=== PATIENT | male | born 1990 | race Caucasian/White ===

== ENCOUNTER 2016-12-24 04:11 | Observation (INO) | payer SELFPAY ==
[~2016-12-24] VITALS: Ht 180.3 cm; Wt 198.0 kg
[2016-12-24 04:12] VITALS: BP 146/72; PULSE 106; RESP 16; TEMP 98.1; O2SAT 100
--- NOTE | 2016-12-24 05:03 | RADRPT ---
EXAM DATE/TIME: 12/24/2016 04:41 [facility] COMPARISON: No previous studies available for comparison. INDICATIONS : Chest pain. MEDICAL HISTORY : Chronic obstructive pulmonary disease. SURGICAL HISTORY : None. ENCOUNTER: Initial ACUITY: 2 weeks PAIN SCORE: 6/10 LOCATION: Bilateral chest FINDINGS: Portable AP view of the chest demonstrates a normal-sized cardiac silhouette. No effusion, consolidat ion, or pneumothorax is visualized. The bones and soft tissues demonstrate no acute abnormality. CONCLUSION: No acute cardiopulmonary abnormality is identified. Contreras Duke MD on December 24, 2016 at 5:01 Board Certified Radiologist. This report was verified electronically.
[2016-12-24 05:14] LABS: AUTOMATED NEUTROPHIL # 8.2 TH/MM3 (1.8-7.7); BASOPHIL # 0.1 TH/MM3 (0-0.2); BASOPHIL % 0.8 % (0.0-2.0); EOSINOPHIL # 0.3 TH/MM3 (0-0.4); EOSINOPHIL % 2.2 % (0.0-4.0); HEMATOCRIT 37.1 % (39.0-51.0); HEMO FLAGS DIFF FINAL; LYMPH % 25.1 % (9.0-44.0); LYMPHOCYTE # 3.1 TH/MM3 (1.0-4.8); MEAN CORPUSCULAR HEMOGLOBIN 27.7 PG (27.0-34.0); MEAN CORPUSCULAR HGB CONC 34.6 % (32.0-36.0); MONO % 6.4 % (0.0-8.0); NEUT % 65.5 % (16.0-70.0); PLATELET COUNT 255 TH/MM3 (150-450); RED BLOOD COUNT 4.64 MIL/MM3 (4.50-5.90); RED CELL DISTRIBUTION WIDTH 20.2 % (11.6-17.2); WHITE BLOOD COUNT 12.5 TH/MM3 (4.0-11.0)
[2016-12-24 05:27] LABS: ANION GAP 9 MEQ/L (5-15); BICARBONATE 25.9 MEQ/L (21.0-32.0); BLOOD UREA NITROGEN 12 MG/DL (7-18); CHLORIDE 102 MEQ/L (98-107); GLOMERULAR FILTRATION RATE 104 ML/MIN (>89); POTASSIUM 3.3 MEQ/L (3.5-5.1); SODIUM (NA) 137 MEQ/L (136-145)
[2016-12-24 05:32] LABS: CREATINE KINASE 40 U/L (39-308)
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
[2016-12-24] MEDS ORDERED: KETOROLAC TROMETHAMINE 30 MG/ML (IVP) VIAL IV PUSH ONE (06:30)
[2016-12-24] MEDS ORDERED: SODIUM CHLOR 0.9% 1000 ML INJ 1,000 ML IV ONE (06:30)
--- NOTE | 2016-12-24 06:57 | RADRPT ---
EXAM DATE/TIME: 12/24/2016 06:48 [facility] COMPARISON: No previous studies available for comparison. INDICATIONS : Cephalgia with blurred vision. RADIATION DOSE: 51.58 CTDIvol (mGy) MEDICAL HISTORY : Hypertension. SURGICAL HISTORY : None. ENCOUNTER: Initial ACUITY: 1 day PAIN SCALE: 6/10 LOCATION: cranial TECHNIQUE: Multiple contiguous axial images were obtained of the head. Using automated exposure control and adj ustment of the mA and/or kV according to patient size, radiation dose was kept as low as reasonably a chievable to obtain optimal diagnostic quality images. DICOM format image data is available electro nically for review and comparison. FINDINGS: There is no evidence for intracranial hemorrhage, mass effect, mass lesions, edema, or extra-axial fl uid collections. The visualized bony structures appear intact. The ventricles are normal size for t he patient's age. There are no signs of acute infarction for technique. CONCLUSION: Unremarkable study. Maggy Marks MD on December 24, 2016 at 6:54 Board Certified Radiologist. This report was verified electronically.
[2016-12-24 07:04] LABS: BLOOD, URINE NEG (NEG); COMMENT (UR) CULT NOT INDICATED; CULTURE IF INDICATED CULT NOT INDICATED; GLUCOSE,URINE NEG (NEG); KETONE, URINE NEG (NEG); MUCUS URINE FEW /lpf (OCC); NITRITE,URINE NEG (NEG); PH, URINE 5.5 (5.0-8.5); URINE COLOR YELLOW (YELLW/STRAW)
[2016-12-24 07:11] LABS: TOTAL BILIRUBIN ADULT 1.3 MG/DL (0.2-1.0)
[2016-12-24] MEDS ORDERED: ASPIRIN 81 MG CHEW TAB CHEW ONE (07:30)
[2016-12-24 07:39] VITALS: O2SAT 99
[2016-12-24 07:42] VITALS: BP 123/60; PULSE 79; RESP 20
[2016-12-24] MEDS ORDERED: POTASSIUM CHLORIDE 20 MEQ CONTROLLED RELEASE TAB PO ONE (09:00)
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
[2016-12-24] MEDS ORDERED: SODIUM CHLORIDE 0.9% FLUSH 5 ML FLUSH IVF PRN (09:15)
[2016-12-24] MEDS ORDERED: ACETAMINOPHEN 500 MG CPLT PO PRN (09:15)
[2016-12-24] MEDS ORDERED: ONDANSETRON HCL 4 MG/2 ML VIAL IV PRN (09:15)
[2016-12-24] MEDS ORDERED: ACETAMINOPHEN/HYDROcodone 325 MG/7.5 MG TAB PO PRN (09:15)
[2016-12-24] MEDS ORDERED: ALPRAZolam 0.25 MG TAB PO PRN (09:15)
[2016-12-24 10:08] LABS: CREATINE KINASE 44 U/L (39-308)
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
[2016-12-24 10:24] VITALS: BP 113/55; PULSE 73; RESP 18; O2SAT 97
[2016-12-24 12:30] VITALS: BP 122/72
--- NOTE | 2016-12-24 20:16 | EKG ---
Date Performed: 12/24/2016 Time Performed: 09:26:12 PTAGE: 26 years EKG: Sinus rhythm NORMAL ECG PREVIOUS TRACING : 12/24/2016 04.31 Compared to prior tracing no significant change DOCTOR: Machelle Bhakta Interpretating Date/Time 12/24/2016 20:14:23
--- NOTE | 2016-12-24 20:41 | EKG ---
Date Performed: 12/24/2016 Time Performed: 04:31:13 PTAGE: 26 years EKG: Sinus rhythm LOW QRS VOLTAGE IN PRECORDIAL LEADS DELAYED R WAVE PROGRESSION OLD INFERIOR MYOCARDIAL INFARCTION AB NORMAL ECG NO PREVIOUS TRACING DOCTOR: Machelle Bhakta Interpretating Date/Time 12/24/2016 20:40:29
[2016-12-24] MEDS ORDERED: SODIUM CHLORIDE 0.9% FLUSH 5 ML FLUSH IVF SCH (21:00)
[2016-12-25] MEDS ORDERED: ASPIRIN 325 MG TAB PO SCH (09:00)
== END 2016-12-24 12:30 | disposition home or self-care (01) ==
LOC: NEPE 04:11 → NEDA 08:07
DX: R07.89 Other chest pain (principal); K52.9 Noninfective gastroenteritis and colitis, unspecified; E66.9 Obesity, unspecified; R51 Headache; Z87.891 Personal history of nicotine dependence; R94.31 Abnormal electrocardiogram [ECG] [EKG]; Z71.3 Dietary counseling and surveillance; Z68.44 Body mass index [BMI] 60.0-69.9, adult
CPT/HCPCS: 70450; 71010; 80048; 80076; 81001; 82550; 83690; 84484; 85025; 85652; 93005; 96361; 96374; 99285; G0378; J1885; J7030

== ENCOUNTER 2017-03-04 05:29 | Emergency (ER) | payer SELFPAY ==
[~2017-03-04] VITALS: Ht 180.3 cm; Wt 180.0 kg
[2017-03-04 05:35] VITALS: BP 155/72; PULSE 106; RESP 20; TEMP 97.8; O2SAT 96
[2017-03-04] MEDS ORDERED: HYDR25TA5 PO (06:16)
[2017-03-04] MEDS ORDERED: AMOX500C PO (06:16)
[2017-03-04] MEDS ORDERED: ASPI1TAB93 PO (06:16)
[2017-03-04] MEDS ORDERED: ADVI200T17 PO (06:16)
--- NOTE | 2017-03-04 06:27 | PD ---
HPI Chief Complaint: Chest Pain Time Seen by Provider: 06:17 Travel History International Travel<30 days: No Contact w/Intl Traveler<30days: No Traveled to known affect area: No History of Present Illness HPI 26-year-old male presents to the emergency department by private transportation the care of his significant other for evaluation of headache dizziness chest pain and generalized paresthesias since awakening this morning around 5 AM. Patient states that he has been treating a possible dental infection or sinus infection affecting the right maxillary sinus and right maxillary dentition with xlhb-rbh-gywergq Advil and Excedrin as well as leftover amoxicillin and has also been using adgd-tap-xosssci male enhancement supplement that he took around 2 AM. Patient states that he immediately felt his heart racing after taking the medication. Patient states he's developed chest discomfort and headache since taking the medication. Patient has been diagnosed with hypertension and is currently prescribed HCTZ. Patient reports no other prescription medications. Patient denies known history of CAD dyslipidemia diabetes or tobaccoism but admits to marijuana use. Patient also has a has family history of premature onset heart disease on his father's side of family with his father passing away at age 53 and an uncle dying at age 48. [facility] Past Medical History Narrative Medical Hypertension eyes surgery occasional alcohol use marijuana use; family history CAD; nursing notes reviewed Hypertension: Yes Integumentary: Yes (RECENT HX OF ELEVATED WBC'S, UNKNOWN DX) Influenza Vaccination: No Past Surgical History Eye Surgery: Yes Social History Alcohol Use: Yes (RARE) Tobacco Use: No (QUIT 2013) Substance Use: Yes (MARIJUANA SOCIALLY) Allergies-Medications (Allergen,Severity, Reaction): Coded Allergies: cyclobenzaprine (Unverified Adverse Reaction, Severe, Hives, 03/04/17) Reported Meds & Prescriptions Reported Meds & Active Scripts Active Reported Hydrochlorothiazide 25 Mg Tab 25 Mg PO DAILY Amoxicillin 500 Mg Cap 500 Mg PO BID Advil Pm (Ibuprofen-Diphenhydramine) 200-38 Mg Tab 0 PO HS PRN Excedrin Extra Strength (Hmgkxbq-Rbdtwsjamehdq-Emutdmap) 250 Mg-250 Mg-65 Mg Tab 2 Tab PO ONCE Review of Systems Except as stated in HPI: all other systems reviewed are Neg Physical Exam Narrative GENERAL: Well-developed well-nourished clinically obese male in no acute distress no respiratory distress SKIN: Warm and dry. HEAD: Atraumatic. Normocephalic. EYES: Pupils equal and round. No scleral icterus. No injection or drainage. ENT: No nasal bleeding or discharge. Mucous membranes pink and moist. NECK: Trachea midline. No JVD. CARDIOVASCULAR: Regular rate and rhythm. RESPIRATORY: No accessory muscle use. Clear to auscultation. Breath sounds equal bilaterally. GASTROINTESTINAL: Abdomen soft, non-tender, nondistended. Hepatic and splenic margins not palpable. MUSCULOSKELETAL: Extremities without clubbing, cyanosis, or edema. No obvious deformities. NEUROLOGICAL: Awake and alert. No obvious cranial nerve deficits. Motor grossly within normal limits. Five out of 5 muscle strength in the arms and legs. Normal speech. PSYCHIATRIC: Appropriate mood and affect; insight and judgment normal. Data Data Last Documented VS Vital Signs Date Time Temp Pulse Resp B/P (MAP) Pulse Ox O2 Delivery O2 Flow Rate FiO2 03/04/17 05:35 97.8 106 20 155/72 (99) 96 Orders Orders Electrocardiogram (03/04/17 06:17) Basic Metabolic Panel (Bmp) (03/04/17 06:17) Ckmb (Isoenzyme) Profile (03/04/17 06:17) Complete Blood Count With Diff (03/04/17 06:17) Magnesium (Mg) (03/04/17 06:17) Prothrombin Time / Inr (Pt) (03/04/17 06:17) Act Partial Throm Time (Ptt) (03/04/17 06:17) Troponin I (03/04/17 06:17) Chest, Single Ap (03/04/17 06:17) Ecg Monitoring (03/04/17 06:17) Bilateral Bp Monitoring (03/04/17 06:17) Iv Access Insert/Monitor (03/04/17 06:17) Oximetry (03/04/17 06:17) Oxygen Administration (03/04/17 06:17) Sodium Chloride 0.9% Flush (Ns Flush) (03/04/17 06:30) Ct Brain W/O Iv Contrast(Rout) (03/04/17 ) Labs Laboratory Tests Test 03/04/17 06:20 White Blood Count 15.0 TH/MM3 Red Blood Count 4.07 MIL/MM3 Hemoglobin 11.3 GM/DL Hematocrit 32.1 % Mean Corpuscular Volume 78.9 FL Mean Corpuscular Hemoglobin 27.6 PG Mean Corpuscular Hemoglobin Concent 35.0 % Red Cell Distribution Width 18.4 % Platelet Count 339 TH/MM3 Mean Platelet Volume 7.6 FL Neutrophils (%) (Auto) 74.0 % Lymphocytes (%) (Auto) 19.6 % Monocytes (%) (Auto) 4.4 % Eosinophils (%) (Auto) 1.3 % Basophils (%) (Auto) 0.7 % Neutrophils # (Auto) 11.1 TH/MM3 Lymphocytes # (Auto) 2.9 TH/MM3 Monocytes # (Auto) 0.7 TH/MM3 Eosinophils # (Auto) 0.2 TH/MM3 Basophils # (Auto) 0.1 TH/MM3 CBC Comment DIFF FINAL Differential Comment Sodium Level 136 MEQ/L Potassium Level 3.6 MEQ/L Chloride Level 101 MEQ/L [facility] Medical Decision Making Medical Screen Exam Complete: Yes Emergency Medical Condition: Yes Medical Record Reviewed: Yes Interpretation(s) EKG: Sinus tachycardia, rate 103, incomplete right bundle branch block no ST elevation cbc: Leukocytosis with left shift Differential Diagnosis Adverse medications/drug reaction, chest pain, ACS, MT, chest wall pain, TIA, CVA, headache, uncontrolled hypertension, sinusitis, dentalgia, dental infection Narrative Course Patient placed on cardiac cath tech and pulse oximetry; EKG performed; IV access obtained and specimens collected and sent for resulting; patient sent for CT brain noncontrast Cardiac risk: Hypertension, morbid obesity, premature onset family history CAD Patient with white cell count 15,000 with recent sinus pressure and dental pain may reflect partially treated right maxillary sinusitis with or without dental infection although no evidence of dental abscess or fluctuance on physical exam patient does show evidence of large dental Nathaly for the #1 tooth; also may reflect stress demargination from the event this morning after male enhancement supplement. @ 0700 care signed over to oncoming doctor Dr Valdivia Diagnosis Primary Impression: Chest pain, atypical Dayan Quintana MD Mar 04, 2017 06:27
[2017-03-04] MEDS ORDERED: SODIUM CHLORIDE 0.9% FLUSH 10 ML FLUSH IVF PRN (06:30)
[2017-03-04 06:35] LABS: AUTOMATED NEUTROPHIL # 11.1 TH/MM3 (1.8-7.7); BASOPHIL # 0.1 TH/MM3 (0-0.2); BASOPHIL % 0.7 % (0.0-2.0); EOSINOPHIL # 0.2 TH/MM3 (0-0.4); EOSINOPHIL % 1.3 % (0.0-4.0); HEMATOCRIT 32.1 % (39.0-51.0); HEMO FLAGS DIFF FINAL; LYMPH % 19.6 % (9.0-44.0); LYMPHOCYTE # 2.9 TH/MM3 (1.0-4.8); MEAN CELL VOLUME 78.9 FL (80.0-100.0); MEAN CORPUSCULAR HEMOGLOBIN 27.6 PG (27.0-34.0); MONO % 4.4 % (0.0-8.0); PLATELET COUNT 339 TH/MM3 (150-450); RED BLOOD COUNT 4.07 MIL/MM3 (4.50-5.90); RED CELL DISTRIBUTION WIDTH 18.4 % (11.6-17.2)
--- NOTE | 2017-03-04 06:36 | RADRPT ---
EXAM DATE/TIME: 03/04/2017 06:27 [facility] COMPARISON: CHEST SINGLE AP, December 24, 2016, 4:41. INDICATIONS : Chest pain. MEDICAL HISTORY : Hypertension. SURGICAL HISTORY : None. ENCOUNTER: Subsequent ACUITY: 1 day PAIN SCORE: 5/10 LOCATION: Bilateral chest FINDINGS: A single view of the chest demonstrates the lungs to be symmetrically aerated without evidence of mas s, infiltrate or effusion. The cardiomediastinal contours are unremarkable. Osseous structures are intact. CONCLUSION: No evidence of acute cardiopulmonary disease. Contreras Acosta MD on March 04, 2017 at 6:34 Board Certified Radiologist. This report was verified electronically.
[2017-03-04 06:47] LABS: CHLORIDE 101 MEQ/L (98-107); POTASSIUM 3.6 MEQ/L (3.5-5.1); SODIUM (NA) 136 MEQ/L (136-145)
--- NOTE | 2017-03-04 06:49 | RADRPT ---
EXAM DATE/TIME: 03/04/2017 06:29 [facility] COMPARISON: CT BRAIN W/O CONTRAST, December 24, 2016, 6:48. INDICATIONS : Cephalgia. RADIATION DOSE: 59.07 CTDIvol (mGy) MEDICAL HISTORY : Hypertension. SURGICAL HISTORY : None. ENCOUNTER: Initial ACUITY: 1 day PAIN SCALE: 4/10 LOCATION: Bilateral temporal occipital TECHNIQUE: Multiple contiguous axial images were obtained of the head. Using automated exposure control and adj ustment of the mA and/or kV according to patient size, radiation dose was kept as low as reasonably a chievable to obtain optimal diagnostic quality images. DICOM format image data is available electro nically for review and comparison. FINDINGS: CEREBRUM: The ventricles are normal for age. No evidence of midline shift, mass lesion, hemorrhage or acute in farction. No extra-axial fluid collections are seen. POSTERIOR FOSSA: The cerebellum and brainstem are intact. The 4th ventricle is midline. The cerebellopontine angle i s unremarkable. EXTRACRANIAL: There is mucoperiosteal thickening of the visualized ethmoid and maxillary sinuses, right side predom inant. SKULL: The calvaria is intact. No evidence of skull fracture. CONCLUSION: No acute intracranial abnormality. Sinus disease. Contreras Acosta MD on March 04, 2017 at 6:46 Board Certified Radiologist. This report was verified electronically.
[2017-03-04 06:50] LABS: ANION GAP 8 MEQ/L (5-15); BICARBONATE 27.1 MEQ/L (21.0-32.0)
[2017-03-04 06:51] LABS: BLOOD UREA NITROGEN 18 MG/DL (7-18); MAGNESIUM 2.1 MG/DL (1.5-2.5)
[2017-03-04 06:52] LABS: APTT (PATIENT) 28.6 SEC (24.3-30.1); PROTHROMBIN TIME - PATIENT 10.7 SEC (9.8-11.6)
[2017-03-04 06:54] LABS: GLOMERULAR FILTRATION RATE 121 ML/MIN (>89)
[2017-03-04 07:00] VITALS: BP 157/78; PULSE 78; RESP 20; O2SAT 97
[2017-03-04 07:01] LABS: CREATINE KINASE 51 U/L (39-308)
[2017-03-04 07:02] VITALS: BP_SYST 136; BP_SYST 139; BP_DIAS 67; BP_DIAS 80; PULSE 86; RESP 20; O2SAT 96
--- NOTE | 2017-03-04 07:25 | PD ---
Physical Exam Narrative Received sign out to follow up labs and reevaluate patient. 26yo M with headache, dizziness, chest pain after waking up this morning. Pt also used male enhancement and had chest pain and palpitations after. Labs reviewed, leukocytosis. Pt has a dental infection that he is treating and has dental follow up. Troponin negative. CXR negative. CT brain showed no acute intracranial abnormality. Sinus disease. Pt reevaluated at bedside and is feeling better. States his chest pain had resolved. Chest pain is very atypical. Instructed pt to follow up with primary care physician. Return precautions given. Data Data Last Documented VS Vital Signs Date Time Temp Pulse Resp B/P (MAP) Pulse Ox O2 Delivery O2 Flow Rate FiO2 03/04/17 07:02 86 20 139/80 (99) 96 Nasal Cannula 2.00 136/67 (90) 03/04/17 05:35 97.8 Orders Orders Electrocardiogram (03/04/17 06:17) Basic Metabolic Panel (Bmp) (03/04/17 06:17) Ckmb (Isoenzyme) Profile (03/04/17 06:17) Complete Blood Count With Diff (03/04/17 06:17) Magnesium (Mg) (03/04/17 06:17) Prothrombin Time / Inr (Pt) (03/04/17 06:17) Act Partial Throm Time (Ptt) (03/04/17 06:17) Troponin I (03/04/17 06:17) Chest, Single Ap (03/04/17 06:17) Ecg Monitoring (03/04/17 06:17) Bilateral Bp Monitoring (03/04/17 06:17) Iv Access Insert/Monitor (03/04/17 06:17) Oximetry (03/04/17 06:17) Oxygen Administration (03/04/17 06:17) Sodium Chloride 0.9% Flush (Ns Flush) (03/04/17 06:30) Ct Brain W/O Iv Contrast(Rout) (03/04/17 ) Labs Laboratory Tests Test 03/04/17 06:20 White Blood Count 15.0 TH/MM3 Red Blood Count 4.07 MIL/MM3 Hemoglobin 11.3 GM/DL Hematocrit 32.1 % Mean Corpuscular Volume 78.9 FL Mean Corpuscular Hemoglobin 27.6 PG Mean Corpuscular Hemoglobin Concent 35.0 % Red Cell Distribution Width 18.4 % Platelet Count 339 TH/MM3 Mean Platelet Volume 7.6 FL Neutrophils (%) (Auto) 74.0 % Lymphocytes (%) (Auto) 19.6 % Monocytes (%) (Auto) 4.4 % Eosinophils (%) (Auto) 1.3 % Basophils (%) (Auto) 0.7 % Neutrophils # (Auto) 11.1 TH/MM3 Lymphocytes # (Auto) 2.9 TH/MM3 Monocytes # (Auto) 0.7 TH/MM3 Eosinophils # (Auto) 0.2 TH/MM3 Basophils # (Auto) 0.1 TH/MM3 CBC Comment DIFF FINAL Differential Comment Prothrombin Time 10.7 SEC Prothromb Time International Ratio 1.0 RATIO Activated Partial Thromboplast Time 28.6 SEC Blood Urea Nitrogen 18 MG/DL Creatinine 0.77 MG/DL Random Glucose 102 MG/DL Calcium Level 9.0 MG/DL Magnesium Level 2.1 MG/DL Sodium Level 136 MEQ/L Potassium Level 3.6 MEQ/L Chloride Level 101 MEQ/L Carbon Dioxide Level 27.1 MEQ/L Anion Gap 8 MEQ/L Estimat Glomerular Filtration Rate 121 ML/MIN Total Creatine Kinase 51 U/L Troponin I LESS THAN 0.02 NG/ML MDM Supervised Visit with DIANA: No Interpretation(s) EKG: Sinus tachycardia at 103bpm. No ST segment elevation or depression. Diagnosis Primary Impression: Chest pain, atypical Patient Instructions: General Instructions Departure Forms: Tests/Procedures Additional Instruction: Please follow up with your primary care physician in 2-3 days. Return to the ED if symptoms worsen. Med/Other Pt SpecificInfo: No Change to Meds Disposition: 01 DISCHARGE HOME Condition: Stable Sharla Valdiviabetty MALHOTRA Mar 04, 2017 07:25
[2017-03-04 07:30] VITALS: BP 156/68
--- NOTE | 2017-03-04 09:55 | EKG ---
Date Performed: 03/04/2017 Time Performed: 05:37:35 PTAGE: 26 years EKG: SINUS TACHYCARDIA NORMAL RHYTHM ECG NO PREVIOUS TRACING DOCTOR: Marshall Brown Interpretating Date/Time 03/04/2017 09:54:00
== END 2017-03-04 07:37 | disposition home or self-care (01) ==
LOC: PHED 05:29
DX: R07.89 Other chest pain (principal); R42 Dizziness and giddiness; R51 Headache; R20.2 Paresthesia of skin; I10 Essential (primary) hypertension; Z87.891 Personal history of nicotine dependence
CPT/HCPCS: 70450; 71010; 80048; 82550; 83735; 84484; 85025; 85610; 85730; 93005; 99285